=== PATIENT | female | born 2000 | race Caucasian/White ===

== ENCOUNTER → 2020-05-07 14:49 | Outpatient (CLI) | payer MEDICAID, SELFPAY ==
[2020-05-07 16:12] LABS: hCG Titer Quant., Serum < 1 mIU/mL (1-3)
== END ==
PROVIDERS: Visit Provider Student in an Organized Health Care Education/Training Program
DX: O03.9 Complete or unspecified spontaneous abortion without complication (principal)
CPT/HCPCS: 36415; 84702